=== PATIENT | male | born 1970 | race African-American/Black ===

== ENCOUNTER → 2017-10-30 | Outpatient (CLI) | payer OTHER ==
[~2017-10-30] MED LIST: ASPIR 8181 MG PO; BACTRIM DS TAB1 EACH PO; COREG25 MG PO; DIABETA 2.5MG2.5 MG; KEFLEX500 M1 PO; LABETALOL 100100 MG; LANTUS100 UNIT/M SUBQ; LIPITOR10 MG; LIPITOR10 MG PO; LISINOPRIL10 MG; MAGNESIUM27 MG; MEPILEX1 EACH TP; MYFORTIC180 MG; NORVASC5 MG PO; PREDNISOLONE 5 M5 M1; PREDNISONE 5 MG5 M1 PO; PROGRAF1 MG PO; RENVELA0.8 GM; SENSIPAR60 MG PO; TRADJENTA5 MG; TRAMADOL 50 MG50 MG PO
== END ==
LOC: HYPER 06:48
DX: E11.621 Type 2 diabetes mellitus with foot ulcer (principal); L97.511 Non-pressure chronic ulcer of other part of right foot limited to breakdown of skin; I10 Essential (primary) hypertension; L84 Corns and callosities; Z79.4 Long term (current) use of insulin; Z94.0 Kidney transplant status

== ENCOUNTER → 2017-11-21 | Outpatient (CLI) | payer OTHER | LOC: HYPER 11-13 06:37 | DX: E11.621 Type 2 diabetes mellitus with foot ulcer (principal); L97.511 Non-pressure chronic ulcer of other part of right foot limited to breakdown of skin; E11.42 Type 2 diabetes mellitus with diabetic polyneuropathy; Z79.4 Long term (current) use of insulin; Z94.0 Kidney transplant status; I10 Essential (primary) hypertension ==

== ENCOUNTER 2019-08-02 22:48 | Emergency (ER) | payer BC, OTHER ==
[~2019-08-02] VITALS: Ht 175.3 cm; Wt 103.4 kg
[2019-08-03] MEDS ORDERED: DOXYCYCLINE 10100 MG PO (00:05)
[2019-08-03] MEDS ORDERED: CIPROFLOXACIN500 M1 PO (00:05)
[2019-08-03 00:29] VITALS: BP 156/86
== END 2019-08-03 00:30 | disposition home or self-care (01) ==
LOC: ER 22:48
DX: L03.115 Cellulitis of right lower limb (principal); I10 Essential (primary) hypertension; E11.9 Type 2 diabetes mellitus without complications; Z79.4 Long term (current) use of insulin

== ENCOUNTER 2019-08-03 15:37 | Inpatient (IN) | payer BC, OTHER ==
[~2019-08-03] VITALS: Ht 172.7 cm; Wt 105.8 kg
[~2019-08-03 15:37] MED LIST changes: +CIPROFLOXACIN500 M1 PO; +DOXYCYCLINE 10100 MG PO
[2019-08-03 17:36] LABS: HEMATOCRIT 37.2 % (42.0-52.0); HEMOGLOBIN 12.2 gm/dL (14.0-18.0); MCH 30.3 pg (26.0-34.0); MCHC 32.8 g/dL (28.0-37.0); MCV 92.4 fL (80.0-100.0); RBC 4.03 mil/uL (4.50-6.00); RDW 14.2 % (10.5-14.5); WBC 15.6 thou/uL (4.0-11.0)
[2019-08-03 17:41] LABS: CALCIUM 10.2 mg/dL (8.5-10.1); POTASSIUM 3.9 mmol/L (3.5-5.1)
[2019-08-03 17:47] LABS: ALBUMIN 2.8 g/dL (3.4-5.0); PHOSPHORUS 2.7 mg/dL (2.5-4.9); TOTAL BILIRUBIN 0.8 mg/dL (<0.1-1.0); TOTAL PROTEIN 7.6 g/dL (6.4-8.2)
[2019-08-03 18:01] LABS: INR 1.1; PROTIME 11.3 Seconds (9.3-11.4)
[2019-08-03 19:55] VITALS: BP 137/74
--- NOTE | 2019-08-03 20:42 | NUR ---
Direct admission to the floor due to R foot abcess. A+Ox4. Transferred to room safely. Admission care and assessment done. On room air. To start an IV line- night filler nurse informed. Wound dressing, cleaning and photo done. Consults called in by pharmacy. Medication reconcilation done and for r/v- a/w which medications to be resumed- night filler nurse informed. Sepsis screen done. A/W urine specimen for urinalysis. On isolation, ?MRSA- asked Dr Winslow and informed her no wound swab has been done yet- swab done by Dr Winslow and sent to lab. Blood draw done by lab staff. Pt with admission order of [facility]- as per Dr Winslow, a/w lab results and to decide if pt will need to be moved. For MRI of foot tomorrow- checklist done, to be faxed tomorrow- shift supervisor rn nurse informed. Pt complained of R shoulder pain due to lifting and abdominal hernia- Dr Winslow informed and assessed the patient. Vital signs stable. Up ad georgi. A/w OT, PT, CM evaluation and wound nurse consult. With fistula on L upper arm- not on dialysis anymore, pt had kidney transplant 2014. Systems Architecture Analyst consult placed due to wound and for pt's food preference. To continue monitoring.
[2019-08-03 21:44] LABS: URINE BLOOD NEGATIVE (Negative); URINE CLARITY CLEAR; URINE COLOR YELLOW; URINE GLUCOSE-RANDOM* 1+ (Negative); URINE KETONES 1+ (Negative); URINE LEUKOCYTES-REFLEX NEGATIVE (Negative); URINE NITRITE-REFLEX NEGATIVE (Negative); URINE PROTEIN (DIPSTICK) 1+ (Negative); URINE SPECIFIC GRAVITY >= 1.030 (1.005-1.035)
[2019-08-03 21:45] LABS: ICTOTEST (BILI CONFIRMATORY) Negative (Negative); URINE BILIRUBIN NEGATIVE (Negative)
[2019-08-03 22:01] LABS: BACTERIA-REFLEX 1-9 Few /HPF (None Seen); SQUAMOUS 0-3 Few /LPF (0-3); URINE RBC 0-2 Rare /HPF (0-2); URINE WBC-REFLEX 0-5 Rare /HPF (0-5)
[2019-08-03 22:02] LABS: COARSE GRANULAR CASTS 0-3 Few /LPF (None Seen); CRYSTALS None Seen /LPF (None Seen); HYALINE CASTS 0-3 Few /LPF (None Seen); MUCUS 4-6 Moderate strn/LPF (None Seen)
[2019-08-03 23:57] VITALS: BP 118/72
--- NOTE | 2019-08-04 01:45 | NUR ---
PATIENT AOX4 MAKES NEEDS KNOWN. PATIENT CONTINENT OF BOTH BOWEL AND BLADDER.PATIENT IS UP AT ANTHONY. PATIENT HAS A WOUND ON RIGHT FOOT MINIMUM DRAINING NO ODOR, PATIENT WOUND HAS S/S OF INFECTION, WARM TO TOUCH, PATIENT IS ON ABT. NEW IV ON RIGHT HAND. PATIENT DENIED PAIN OR DISCOMFORT THIS SHIFT. URINE SPECIMENT AND WOUND CULTURE SENT TO THE LAB. PATIENT IN BED ASLEEP AT THIS TIME BREATHING REGULAR AND UNLABOURED.
[2019-08-04 04:31] VITALS: BP 132/83
[2019-08-04 06:19] LABS: HEMATOCRIT 34.1 % (42.0-52.0); HEMOGLOBIN 10.9 gm/dL (14.0-18.0); MCV 93.7 fL (80.0-100.0); RBC 3.65 mil/uL (4.50-6.00); RDW 14.3 % (10.5-14.5); WBC 12.3 thou/uL (4.0-11.0)
[2019-08-04 06:28] LABS: CALCIUM 9.4 mg/dL (8.5-10.1); CREATININE 1.9 mg/dL (0.7-1.3); POTASSIUM 3.9 mmol/L (3.5-5.1)
[2019-08-04 07:40] VITALS: BP 152/88
--- NOTE | 2019-08-04 12:05 | NUR ---
SCREEN PERFORMED THIS DATE FOR OT EVAL. ASSESSED PATIENT WALKING BACK FROM TOILET SAFELY, PATIENT UP AD ANTHONY IN ROOM PER NURSING. PATIENT ABLE TO DOFF/DON L SLIPPER SOCK, WOUND CARE DRESSING ON R FOOT. PATIENT HAS WFL UE AROM AND STRENGTH FOR FUNCTIONAL TASKS. TALKED ABOUT POTENTIAL FOR SHOWER CHAIR AT HOME TO BATHE SEATED FOR INCREASED SAFETY. PATIENT LIVES WITH SONS. NO OT CONCERNS SEEN AT THIS DATE.
--- NOTE | 2019-08-04 13:13 | NUR ---
Assess due to RD consult received for pt with diabetic foot wound-wound care following. Has good appetite, eating high protein foods and uses extra whey protein at home. Hx renal transplant 2014. On carb controlled diet, BG 179-334. Pt voices trying to watch what he eats, but does not routinely check sugars at home, States last A1C around 8% which is down from prior testing. BG likely aggravated with prednisone. Pt voiced no dietary questions but would like to have a protein drink while here-order glucerna shakes 1x per day. Low nutrition risk
[2019-08-04 14:26] VITALS: BP 136/74
--- NOTE | 2019-08-04 14:43 | NUR ---
PT ADMITTED RELATED TO RT FOOT WOUND. CM REVIEWED CHART AND SPOKE WITH CARE TEAM. CM MET WITH PT AT BEDSIDE THIS DAY. PT IS A&O X4. CM ROLE INTRODUCED. PT INDICATED HE LIVES IN A HOUSE WITH HIS TWO SONS WITH 1 STEP TO ENTER AND 1 STEP INSIDE. 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 PT INDICATED NO DME AND THAT HE HAD HH AFTER HIS KIDNEY TRANSPLANT YRS AGO. PT INDICATED HE PLANS TO RETURN HOME ONCE MEDICALLY STABLE. CM TO FOLLOW INDICATED WITH DC PLANNING.
--- NOTE | 2019-08-04 15:38 | NUR ---
ASSUMED CARE 0700. PAIN MANAGABLE. DRESSING CHANGED BY WOUND CARE. NO PICTURE REQUIRED PER WOUND NURSE. UP AB ANTHONY WILL CALL FOR ASSISTANCE. BED BATH GIVEN. SURGERY TOMORROW WITH DR ONEAL TO CLEAN OUT WOUND. NPO AFTER MIDNIGHT TONIGHT. CALL LIGHT IN REACH. CONTINUE TO MONITOR.
[2019-08-04 20:08] VITALS: BP 137/81
--- NOTE | 2019-08-05 06:08 | NUR ---
Pt. rested quietly at intervals during the night when checked on during frequent rounds. He offers no c/o pain. Dressing to his right foot is dry and intact.
[2019-08-05 06:14] LABS: ALBUMIN 1.8 g/dL (3.4-5.0); CALCIUM 7.8 mg/dL (8.5-10.1); CREATININE 1.4 mg/dL (0.7-1.3); PHOSPHORUS 2.4 mg/dL (2.5-4.9); POTASSIUM 3.8 mmol/L (3.5-5.1)
[2019-08-05 08:40] VITALS: BP 151/87
--- NOTE | 2019-08-05 14:26 | NUR ---
CARE TEAM INDICATED PT IS TO HAVE I&D RIGHT FOOT TODAY. CM TO FOLLOW INDICATED WITH DC PLANNING.
[2019-08-05 15:09] VITALS: BP 147/81
--- NOTE | 2019-08-05 17:06 | NUR ---
ASSUMED CARE 0700. SURGERY TODAY LEFT UNIT 1530. NOTIFIED DOCTOR NICHELLE OF ELEVATED BLOOD SUGARS WITH NPO STATUS. DRESSING REMAINED C//D/I.
[2019-08-05 18:40] VITALS: BP 171/89
[2019-08-05] MEDS ORDERED: ZESTRIL10 MG PO (19:14)
[2019-08-05] MEDS ORDERED: LISINOPRIL10 MG PO (19:14)
[2019-08-06 01:29] VITALS: BP 117/81
--- NOTE | 2019-08-06 03:15 | NUR ---
ASSUMED CARE AROUND 190. ISO FOR MRSA WOUND. AXOX4. AMLODIPINE FROM HOME MEDS RESUMED. R FOOT DRESSING DCI. NO S/S ACUTE DISTRESS NOTED OR REPORTED AT THIS TIME. WILL CONT TO MONITOR FOR ANY CHANGES IN CONDITION.
[2019-08-06 05:00] VITALS: BP 130/76
[2019-08-06 06:45] LABS: ALBUMIN 2.3 g/dL (3.4-5.0); CREATININE 1.6 mg/dL (0.7-1.3); PHOSPHORUS 2.7 mg/dL (2.5-4.9); POTASSIUM 4.8 mmol/L (3.5-5.1)
[2019-08-06 08:21] VITALS: BP 155/88
[2019-08-06 09:20] LABS: HEMATOCRIT 32.9 % (42.0-52.0); HEMOGLOBIN 10.5 gm/dL (14.0-18.0); MCH 30.3 pg (26.0-34.0); MCHC 31.8 g/dL (28.0-37.0); MCV 95.1 fL (80.0-100.0); PLATELET COUNT 269 thou/uL (150-400); RBC 3.46 mil/uL (4.50-6.00); RDW 14.8 % (10.5-14.5); WBC 7.9 thou/uL (4.0-11.0)
[2019-08-06 09:50] LABS: ABSOLUTE NEUTROPHILS 5.8 thou/uL (1.4-8.2)
[2019-08-06 09:51] LABS: ANISOCYTOSIS SLIGHT
--- NOTE | 2019-08-06 11:45 | NUR ---
WOUND CARE F/U; ROUNDING WITH DR COLE AND EFRAIN BSN. THE RIGHT FOOT IS S/P SUGICAL DEBRIDEMENT WITH INTACT SUTURES PRESENT. THERE IS A DORSAL FOOT WOUND AND A PLANTAR FOOT WOUND. RECOMMENDATIONS; PACK DORSUM AND PLANTAR FOOT WOUNDS WITH AQUACEL AG, COVER WITH ABD, SECURE WITH KERLIX AND PHOENIX WRAP, DAILY/PRN DISCUSSED WITH STAFF
--- NOTE | 2019-08-06 14:23 | NUR ---
CARE TEAM INDICATED THAT IT IS ANTICPATED THAT PT WILL BE HERE OVER THE WEEKEND. WE ARE AWAITING CULTURES. CM TO CONTINUE TO FOLLOW INDICATED WITH DC PLANNING.
[2019-08-06 14:35] VITALS: BP 146/77
[2019-08-06 19:05] VITALS: BP 116/65
--- NOTE | 2019-08-06 19:41 | NUR ---
Assumed pt care this am, vs have been stable no sings of distres or verbalizations have been noted. Wound care done by wound care nurse and seen by Dr. Louise. Left UA fistula present with bruit and thil. Wound dressing c/d/i. No pain was noted, blood sugar checks and insulin given as per emar. Diet and medication are tolerated. POC followed.
[2019-08-07 06:00] LABS: ALBUMIN 2.2 g/dL (3.4-5.0); CALCIUM 9.2 mg/dL (8.5-10.1); CREATININE 1.6 mg/dL (0.7-1.3); PHOSPHORUS 2.5 mg/dL (2.5-4.9); POTASSIUM 4.2 mmol/L (3.5-5.1)
--- NOTE | 2019-08-07 07:38 | NUR ---
ASSUMED CARE AROUND 1900. AXOX4. R FOOT DRESSING CDI. NO S/S ACUTE DISTRESS NOTED OR REPORTED AT THIS TIME. CARE TRANSFERRED DAY RN AT THIS TIME.
[2019-08-07 08:00] VITALS: BP 154/82
[2019-08-07 15:00] VITALS: BP 149/81
[2019-08-07 15:07] VITALS: BP 154/82
--- NOTE | 2019-08-07 19:20 | NUR ---
Assumed pt care this am, VS have been stable and no signs or verbalizations of distress have been noted. Foot dressing is c/d/i. POC followed, medication given as per emar, blood sugars monitored. Diet and medications well tolerated. Pt is progressing well towards goals.
[2019-08-07 20:28] VITALS: BP 135/71
--- NOTE | 2019-08-08 03:46 | NUR ---
ASSUMED CARE AROUDM 1900. AXOX4. RIGHT FOOT DRESSING CHANGED. TOLERATED WELL. NO S/S ACUTE DISTRESS NOTED OR REPORTED AT THIS TIME. WILL CONT TO MONITOR FOR ANY CHANGES IN CONDITION.
[2019-08-08 07:25] VITALS: BP 136/70
[2019-08-08 10:48] LABS: ABSOLUTE NEUTROPHILS 6.9 thou/uL (1.4-8.2); BASOPHILS 0.8 % (0.0-2.0); EOSINOPHILS 1.6 % (0.0-3.0); HEMATOCRIT 34.1 % (42.0-52.0); LYMPHOCYTES 8.8 % (24.0-44.0); MCH 30.2 pg (26.0-34.0); MCHC 32.1 g/dL (28.0-37.0); MONOCYTES 5.1 % (1.0-8.0); PLATELET COUNT 295 thou/uL (150-400); POLYS 83.7 % (36.0-66.0); RBC 3.63 mil/uL (4.50-6.00); RDW 14.8 % (10.5-14.5); WBC 8.3 thou/uL (4.0-11.0)
[2019-08-08 10:58] LABS: CALCIUM 9.8 mg/dL (8.5-10.1); CREATININE 1.7 mg/dL (0.7-1.3); POTASSIUM 4.8 mmol/L (3.5-5.1)
[2019-08-08 14:39] VITALS: BP 120/66
--- NOTE | 2019-08-08 19:58 | NUR ---
PT A&OX4, VSS, DENIES PAIN. ANTIBIOTICS RAN ORDERED. DR. ZARAGOZA IN TO CHANGE DRESSING ON RIGHT FOOT. PATIENT UP 1 ASSIST WITH WALKER TO BEDROOM, PLACING WEIGHT ON HEEL OF RIGHT FOOT. WILL CONTINUE TO MONITOR.
[2019-08-08 21:01] VITALS: BP 160/81
--- NOTE | 2019-08-09 02:52 | NUR ---
PATIENT AOX4 MAKES NEEDS KNOWN. PATIENT RIGHT FOOT DRESSING IS C/D/I. LEFT DIALYSIS FISTULAR HAS A THRILL AND BRUIT. PATIENT AMBULATES TO THE BATHROOM WITH STEADY GAITS. PATIENT DENIED PAIN OR DISCOMFORT.PATIENT IN BED ASLEEP AT THIS TIME BREATHING REGULAR AND UNLABOURED.
[2019-08-09 07:30] VITALS: BP 144/80
--- NOTE | 2019-08-09 15:10 | NUR ---
WOUND CARE F/U; ROUNDING TODAY WITH DR DOLORES LAUGHLIN. THE WOUNDS ARE STABLE, DRAINAGE HAS DECREASED AND THERE IS NO ORDER OR COMLAINTS FROM THE PATIENT. NO ACUTE S/S OF INFECTION AT THIS TIME. RECOMMENDATION; CONTINUE POC DISCUSSED WITH JOSE
[2019-08-09 16:24] VITALS: BP 118/60
[2019-08-09 20:37] VITALS: BP 147/89
--- NOTE | 2019-08-09 21:18 | NUR ---
PT A"&OX4, VSS, DENIES PAIN. WOUND CARE COMPLETED BY DOCTOR. ANTIBIOTICS RAN ORDERED. NO SIGNS OF DISTRESS, AFEBRILE. CAM BOOT ORDERED PER DOCTOR MILA. VERIFIED AND CONFIRMED WITH NURSE AT OFFICE. DRESSING TO RIGHT FOOT REMAINS C/D/I. WILL CONTINUE TO MONITOR.
--- NOTE | 2019-08-09 23:06 | PATH ---
[facility] [address] [place] [address] PATHOLOGY RPT PROCEDURE Name: MED SNYDER Howie Room #: 454-P [facility] IN M.R.#: [id number] Admission: 08/03/19 Date of : 74 Discharge: Report #: [id number] Path Case #: [id number] LCA Accession Number: [id number] . 01 Material submitted: . foot - RIGHT FOOT BONE. Modifiers: right . 01 Clinical history: . Right foot septci arthritis . 02 Diagnosis: "Right foot bone", biopsy/debridement: - Decalcified bone and articular cartilage with marked reactive changes including edema and fresh hemorrhage. - Periosteum and scant synovium with reactive changes and localized acute and chronic inflammation/necrosis. - See comment. (RONNA:gentry; 08/09/2019) MBR 08/09/2019 1435 Local . 02 Comment: Localized acute and chronic inflammation and necrosis is noted. No definitive acute osteomyelitis is identified. Clinical and radiographic correlation is recommended. (CLW:gentry; 08/09/2019) . 02 Electronically signed: . Shirley Cerrato MD, Pathologist NPI- [id number] . 01 Gross description: . The specimen is received in formalin, labeled "Med Snyder, right foot bone". Received are multiple segments of light frost to frost-brown bone measuring 1.5 x 1.1 x 0.3 cm in aggregate dimensions. The specimen is filtered and entirely submitted in cassette A1, following light decalcification. (CAA; 08/06/2019) QAC/QAC 08/06/2019 1037 Local . 02 Pathologist provided ICD-10: M86.171, M86.671, M87.9 . 02 CPT . 630179, 917739 Specimen Comment: A courtesy copy of this report has been sent to Specimen Comment: [phone], , . Specimen Comment: Report sent to ,DR JERONIMO / [place] [address] PATHOLOGY RPT PROCEDURE Name: MED SNYDER Room #: 454-P [facility] IN M.R.#: [id number] Admission: 08/03/19 Date of : 74 Discharge: Report #: [id number] Path Case #: [id number] Performed at: [address], [place], [place] [id number] MD Drake Reyes MD Phone: [phone] Performed at: [address] [id number] MD Yumi Romano MD Phone: [phone]
--- NOTE | 2019-08-10 04:43 | NUR ---
Assumed pt care at 1900. Pt is A/OX4,VSS. Denies pain on assessment. Voiding w/o difficultiers. Up with heel touch weight bearing assist of to BR.Dressing on right foot C/D/I. Fall precautions in place.
[2019-08-10 05:38] LABS: ALBUMIN 2.2 g/dL (3.4-5.0); CALCIUM 9.5 mg/dL (8.5-10.1); CREATININE 1.5 mg/dL (0.7-1.3); PHOSPHORUS 3.3 mg/dL (2.5-4.9); POTASSIUM 4.4 mmol/L (3.5-5.1)
[2019-08-10 05:43] LABS: ABSOLUTE NEUTROPHILS 5.3 thou/uL (1.4-8.2); BASOPHILS 0.6 % (0.0-2.0); EOSINOPHILS 2.1 % (0.0-3.0); HEMATOCRIT 32.8 % (42.0-52.0); HEMOGLOBIN 10.6 gm/dL (14.0-18.0); LYMPHOCYTES 14.6 % (24.0-44.0); MCH 30.5 pg (26.0-34.0); MCHC 32.4 g/dL (28.0-37.0); MCV 94.2 fL (80.0-100.0); MONOCYTES 10.9 % (1.0-8.0); PLATELET COUNT 310 thou/uL (150-400); POLYS 71.8 % (36.0-66.0); RBC 3.48 mil/uL (4.50-6.00); RDW 14.9 % (10.5-14.5); WBC 7.4 thou/uL (4.0-11.0)
[2019-08-10 08:00] VITALS: BP 146/83
--- NOTE | 2019-08-10 11:15 | HC ---
[facility] [place] [address] CONSULTATION Name: SADIA SNYDERRODOLFO Denise Room #: 454-P [facility] IN .R.#: [id number] Admission: 08/03/19 Attend Phys: Edgardo Coughlin MD Discharge: Date of : 74 Report #: [id number] THIS REPORT FOR: //name// CC: Juan Alberto Louise [facility] physician/PCP Hailey Coughlin DATE OF SERVICE: 08/09/2019 INFECTIOUS DISEASE CONSULTATION REASON FOR CONSULTATION: I was asked to evaluate concerning diabetic foot infection in the setting of renal transplantation. HISTORY OF PRESENT ILLNESS: The patient is a 49 year old with underlying diabetes, peripheral vascular disease, peripheral neuropathy, end-stage renal disease, status post renal transplant, on 3-drug immunosuppression. Noticed an ulceration over the dorsum of his right foot about 10 days ago. This worsened with increased pain. No specific trauma. He has also noted to have a callus over the lateral aspect of his foot. No fever, chills or sweats. His blood glucose control has been poor. He states that when he checks his levels have been in the 100 range. His hemoglobin A1c was reported at 9. He presented to the Emergency Room on 08/02/2019 prior to his planned visit with Podiatry. He had noticed purulent drainage. He was placed on ciprofloxacin and doxycycline. Subsequent day, he was hospitalized, placed on vancomycin and Zosyn. No cultures were obtained during the visit in the Emergency Room. Subsequent cultures were obtained on the day of his admission, which are currently pending. He then went to surgery on 08/05/2019 for debridement of the soft tissues fifth MTP joint and bone biopsy. Those cultures remain pending. I have not seen the pathology report from his bone biopsy yet. He has remained on vancomycin and Zosyn without significant side effect. He has had previous wound to the right foot. He states about 4 years ago. Renal transplant in 2014. He was maintained on Myfortic and Prograf. I see he is also on prednisone. He has had no rejection episodes. He is a nonsmoker. REVIEW OF SYSTEMS: Full 10-point review was negative other than what is described above. ALLERGIES: None known. MEDICATIONS: As noted on his MAR including prednisone, tacrolimus, and mycophenolate. Also, on vancomycin and Zosyn. PAST MEDICAL AND SURGICAL HISTORY: Diabetes, peripheral neuropathy, peripheral [facility] [address] [place] [address] CONSULTATION Name: KELLEN SNYDER Room #: 454-P [facility] IN .R.#: [id number] Admission: 08/03/19 Attend Phys: Edgardo Coughlin MD Discharge: Date of : 74 Report #: [id number] vascular disease, hypertension, renal transplant, left upper extremity AV fistula and left knee surgery. FAMILY HISTORY: Noncontributory. SOCIAL HISTORY: Nonsmoker, no significant alcohol intake. Tries to exercise regularly. PHYSICAL EXAMINATION: VITAL SIGNS: Afebrile and hemodynamically stable. GENERAL: He is alert and cooperative and pleasant, in no acute distress. SKIN: Without rash or decubitus other than what is noted to his right foot. EYES: Without scleral icterus. MOUTH: Without mucositis. NECK: Supple. LUNGS: Clear. HEART: Regular, without murmur, gallop or rub. ABDOMEN: Soft and nontender with no hepatosplenomegaly or mass. Graft was nontender. Moderately obese. GENITORECTAL: Not performed. EXTREMITIES: Pulses in the right lower extremity were palpable. An incision over the lateral aspect of his distal foot over the metatarsal head. He had a wound over the dorsum of his foot, which was packed with a lateral distal foot wound packed as well. Mild induration. Moderate erythema. Trace edema. Cranial nerves intact. Sensation in his toes was diminished to touch. Capillary refill was mildly diminished. He had evidence of tinea pedis. PSYCHIATRIC: Mood normal. LABORATORY AND DIAGNOSTIC STUDIES: Sodium 135, potassium 4.8, bicarbonate 28, creatinine 1.7. Liver function test normal. Hemoglobin 11, platelet count 295,000, white count 8.3 with 83% segs and 18% lymphs. Sedimentation rate 90. Urinalysis unremarkable. Tacrolimus level is pending. Gram stain of his tissue culture showing mixed arcadio. Cultures are pending. Lower extremity ultrasound shows evidence of peripheral vascular disease, mostly on the left. MRI scan showed fifth MTP septic arthritis changes with soft tissue inflammatory change. No gross evidence of osteomyelitis. X-rays of the foot done postoperatively show evidence of biopsy fifth metatarsal head and proximal phalanx. IMPRESSION: A 49-year-old diabetic with end-stage renal disease, now renal transplant, on 3-drug immunosuppression with associated peripheral neuropathy and diabetic foot infection. He is postoperative day #4 from surgical debridement of the fifth metatarsophalangeal joint and soft tissues. 1. Peripheral vascular disease. 2. Hypertension. 3. Peripheral neuropathy. 4. Chronic kidney disease. [facility] [address] [facility] [place] [address] CONSULTATION Name: KELLEN SNYDER Room #: 201-P [facility] IN Deepa#: [id number] Admission: 08/03/19 Attend Phys: Edgardo Coughlin MD Discharge: Date of : 74 Report #: [id number] 5. Tinea pedis. RECOMMENDATIONS: 1. We will await cultures of the operative tissues. Await bone biopsy path report to evaluate for osteomyelitis. 2. Continue IV antibiotic combination with vancomycin and Zosyn. 3. We will need central venous access. 4. Would decrease his immunosuppression as much as possible. 5. Control blood glucose levels. 6. May well need further surgical debridement depending on initial results. <ELECTRONICALLY SIGNED> By: aZire Nguyen MD 08/10/19 1115 1149 [id number] Zaire Nguyen MD /nt
[2019-08-10] MEDS ORDERED: TYLENOL325 MG PO (12:03)
[2019-08-10] MEDS ORDERED: MYFORTIC180 MG PO (12:03)
[2019-08-10] MEDS ORDERED: PROTONIX40 M1 PO (12:03)
[2019-08-10] MEDS ORDERED: TERBINAFINE HCL30 GM TOP (12:03)
--- NOTE | 2019-08-10 12:40 | NUR ---
dp sent referral to [facility], for wound care and iv antibiotics, discharging today.
[2019-08-10] MEDS ORDERED: VANC750 IV ×2 (13:22→16:11)
[2019-08-10 15:25] VITALS: BP 146/83
[2019-08-10 15:44] VITALS: BP 146/83
[2019-08-10 15:46] VITALS: BP 146/83
--- NOTE | 2019-08-10 15:47 | NUR ---
CARE TEAM INDICATED THAT PT IS MEDICALLY STABLE TO DC HOME THIS DAY WITH HOME INFUSION SERVICES THROUGH [employer] AND HOME [facility] THROUGH [employer]. REFERRAL HAD BEEN SENT TO [facility] PER PT REQUEST BUT THEY INDICATED THAT THEY WOULDN'T BE ABLE TO SEE PT UNTIL FRIDAY. MORENITA CAME AND DID BEDSIDE TEACH WITH PT. TICC PLACED. PT IS TO HAVE DOSE AT 9PM. ORDERS FAXED TO AND HOME [facility]. PT IS AWARE AND AGREEABLE WITH DC HOME THIS DAY. NO OTHER CM INTERVENTION INDICATED CASE CLOSED.
[2019-08-10 16:20] VITALS: BP 146/83
--- NOTE | 2019-08-10 17:17 | NUR ---
PROGRESSED TOWARDS GOALS, DC HOME TODAY WITH HH. EDUCATION PROVIDED IV INFUSION EDUCATION TO PATIENT. TICC LINE PLACE BY IR TODAY DOUBLE LUMIN. LINE EXTENSION PLACED FOR HOME INFUSIONS. PT INFORMED SUPPLIES TO BE DELIVED TO HIS HOME FOR 9PM [facility] INFUSION. WOUND DRESSING CHANGED BY DR ZARAGOZA. PT DECLINED REDESSING WOUND FOR PICTURE.
--- NOTE | 2019-08-10 17:56 | HC ---
[facility] [place] [address] CONSULTATION Name: KELLEN SNYDER Howie Room #: 454-P [facility] IN ..#: [id number] Admission: 08/03/19 Attend Phys: Edgardo Coughlin MD Discharge: Date of : 74 Report #: [id number] THIS REPORT FOR: //name// CC: Juan Alberto Louise [facility] physician/PCP Hailey Coughlin DATE OF SERVICE: 08/04/2019 CHIEF COMPLAINT: Right foot abscess. HISTORY OF PRESENT ILLNESS: This is a 49-year-old male patient who twisted his ankle and sustained some type of abrasion to the lateral aspect of his right foot. He later developed some pain, drainage, swelling and was seen in the Emergency Department and was referred to Dr. Juan Alberto Louise. After being seen by Dr. Louise in the office, Dr. Louise performed a bedside incision and drainage and made him a direct admission to the hospital. I was asked to participate in care regarding ongoing wound care. The patient denies significant pain in his foot. He does have a history of diabetes and peripheral neuropathy, hyperlipidemia, hypertension and a history of renal failure requiring dialysis, but he is now status post right renal transplant 5 years ago and doing well, not requiring any dialysis at this time. PAST MEDICAL HISTORY: As detailed above, hypertension, diabetes, hyperlipidemia, previous pneumonia, peripheral neuropathy and the current ulceration of the foot. ALLERGIES: None. MEDICATIONS: Include ciprofloxacin and doxycycline, Prograf, aspirin, Lantus, prednisone, Norvasc, Lipitor, Ultram, Tradjenta. SOCIAL HISTORY: Negative for any history of smoking and only occasional alcohol use on special occasions. FAMILY HISTORY: Noncontributory. He has a twin brother that does not suffer from diabetes or renal failure. REVIEW OF SYSTEMS: CONSTITUTIONAL: The patient denies fever, chills, or weight loss. NEUROLOGICAL: The patient denies focal weakness but does have significant neuropathy in his feet. ENT: The patient denies earache, nasal drainage, sore throat. CARDIOVASCULAR: The patient denies chest pain or palpitations or diaphoresis. PULMONARY: The patient denies cough or shortness of breath. [address] [address] CONSULTATION Name: KELLEN SNYDER Room #: 454-P [facility] IN ..#: [id number] Admission: 08/03/19 Attend Phys: Edgardo Coughlin MD Discharge: Date of : 74 Report #: [id number] GASTROINTESTINAL: The patient denies nausea, vomiting, diarrhea or abdominal pain. ORTHOPEDIC: The patient is aware of the ulceration involving his right foot. He has a little bit of pain associated with this. Other systems in a 14-point review of systems are negative. PHYSICAL EXAMINATION: VITAL SIGNS: At this time include temperature 98.6, pulse 88, respiratory rate 16, blood pressure 132/83. GENERAL: This is a well-developed, well-nourished male patient who appears to be in minimal distress. HEENT: Head is normocephalic. Nose and throat clear. NECK: Supple. ABDOMEN: Soft, on bowel sounds present. EXTREMITIES: Examination of the lower extremities demonstrates easily palpable distal pulses. He has an area of some tenderness, redness and a little bit of fluctuance involving the lateral foot near the fifth MTP. There is ulceration both on the dorsal and the plantar surface. There is still some purulent drainage that can be expressed from this area. I have taken a culture from this. LABORATORY DATA: Sodium 134, potassium 3.9, chloride 100, CO2 of 23, BUN 27, creatinine 1.9, glucose 183. White blood cell count 12.3 with hemoglobin of 10.9, hematocrit of 34.1. MRI demonstrates no evidence of osteomyelitis. There is evidence of septic arthritis of the right fifth MTP. RECOMMENDATIONS: At this point in time, culture and sensitivity has been obtained. I have recommended broad-spectrum antibiotics, pending the results of culture and sensitivity, he may require more surgical debridement. Dr. Louise is following him here in the hospital and would defer that judgment to Dr. Louise. We would recommend ongoing nutritional support to support maximal wound healing as well as to help maintain good glycemic control. Would recommend continuation of current medications. Would recommend minimal weightbearing or heel touch weightbearing at present. I appreciate being asked to see him in consultation. <ELECTRONICALLY SIGNED> By: Clayton Bustillos MD 08/10/19 1756 [id number] [id number] Clayton Bustillos MD /nt
--- NOTE | 2019-08-11 09:17 | HC ---
[facility] [place] [address] CONSULTATION Name: KELLEN SNYDER Howie Room #: 454-P [facility] IN ..#: [id number] Admission: 08/03/19 Attend Phys: Edgardo Coughlin MD Discharge: 08/10/19 Date of : 74 Report #: [id number] THIS REPORT FOR: //name// CC: Juan Alberto RAMEY physician/PCP Hailey Coughlin DATE OF SERVICE: 08/04/2019 REASON FOR CONSULTATION: Renal transplant. REASON FOR PRESENTATION: Right foot wound. HISTORY OF PRESENT ILLNESS: A 49-year-old with known diabetes mellitus and hypertension. He tells me that back in 2014, he had a kidney transplant, cadaveric. This was related to a complication of pneumonia illness. Before that, he used to be on dialysis for about 4 years. He does not really know his baseline creatinine. He is maintained on Myfortic and Prograf. He was directly admitted from the [facility]iatry [facility] for intravenous antibiotics for his right foot diabetic cellulitis. It looks like that this is being investigated appropriately with some x-rays that showed some soft tissue swelling and gas. He was subsequently admitted to be evaluated and was found to have a creatinine value of 2.0. He really does not know what his baseline creatinine is. He was initiated on appropriate antibiotic. I am being consulted to manage his kidney transplant issues. PAST MEDICAL HISTORY: 1. Diabetes mellitus. 2. Hypertension. 3. Status post kidney transplantation. 4. Left upper extremity AV fistula. 5. Left knee surgery. MEDICATIONS: 1. Tacrolimus 4 mg twice a day. 2. Prednisone. 3. Myfortic 180 twice a day. 4. Amlodipine. FAMILY HISTORY: Both parents are . SOCIAL HISTORY: He denies drug or alcohol abuse. He is still working. REVIEW OF SYSTEMS: GENERAL: No fever or chills. [facility] [address] [place] [address] CONSULTATION Name: KELLEN SNYDER Howie Room #: 454-P [facility]#: [id number] Admission: 08/03/19 Attend Phys: Edgardo Coughlin MD Discharge: 08/10/19 Date of : 74 Report #: [id number] CARDIOVASCULAR: No chest pain or palpitation. PULMONARY: No cough or hemoptysis. GASTROINTESTINAL: No nausea or vomiting. GENITOURINARY: No frequency, no urgency. MUSCULOSKELETAL: As per the history of present illness. ALLERGIES: None. PHYSICAL EXAMINATION: GENERAL: The patient is alert, oriented, in no apparent distress. VITAL SIGNS: Blood pressure from this morning was 132/83. HEAD AND NECK: No jugular venous distention. CHEST: No crackles. CARDIOVASCULAR: No rub. ABDOMEN: Soft, nontender. LOWER EXTREMITIES: No edema. Dressing applied over the right foot. UPPER EXTREMITIES: Left AV fistula. LABORATORY DATA: Reviewed. White blood cell count 12.3. Sodium 134, BUN is 27, creatinine is 1.9. UA with +1 protein and ketones. IMPRESSION AND PLAN: 1. Status post kidney transplantation. 2. Right foot cellulitis, potential abscess. 3. Chronic kidney disease. 4. Diabetes mellitus. 5. Hypertension. 6. We will resume the patient on transplant medication. 7. Continue IV fluid. 8. Try to retrieve his medical records from [facility] to figure out his baseline creatinine. 9. Wound care. 10. Antibiotics per primary team. <ELECTRONICALLY SIGNED> By: Sary Fox MD 08/11/19 0917 [id number] [id number] Sary Fox MD /nt
== END 2019-08-10 19:01 | disposition home health service (06) | DRG 477 ==
LOC: 4W 15:37
PROVIDERS: Hospitalist; Nurse Practitioner; Podiatrist Foot & Ankle Surgery; ADMIT Internal Medicine
DX: M00.071 Staphylococcal arthritis, right ankle and foot (principal); E43 Unspecified severe protein-calorie malnutrition; L03.115 Cellulitis of right lower limb; Z94.0 Kidney transplant status; L02.611 Cutaneous abscess of right foot; N17.9 Acute kidney failure, unspecified; E11.22 Type 2 diabetes mellitus with diabetic chronic kidney disease; I12.9 Hypertensive chronic kidney disease with stage 1 through stage 4 chronic kidney disease, or unspecified chronic kidney disease; E11.51 Type 2 diabetes mellitus with diabetic peripheral angiopathy without gangrene; I70.202 Unspecified atherosclerosis of native arteries of extremities, left leg; B35.3 Tinea pedis; K43.2 Incisional hernia without obstruction or gangrene; N18.3 Chronic kidney disease, stage 3 (moderate); E11.621 Type 2 diabetes mellitus with foot ulcer; B95.62 Methicillin resistant Staphylococcus aureus infection as the cause of diseases classified elsewhere; L97.519 Non-pressure chronic ulcer of other part of right foot with unspecified severity; E11.42 Type 2 diabetes mellitus with diabetic polyneuropathy; M25.511 Pain in right shoulder; E78.5 Hyperlipidemia, unspecified; Z87.01 Personal history of pneumonia (recurrent); Z68.35 Body mass index [BMI] 35.0-35.9, adult; Z79.4 Long term (current) use of insulin; Z79.82 Long term (current) use of aspirin; Z79.899 Other long term (current) drug therapy
CPT/HCPCS: 10047; 50010; 50101; 50386; 53078; 56527; 57091; 57103; 62110; 62850; 70005

== ENCOUNTER → 2019-08-26 | Outpatient (CLI) | payer BC, OTHER ==
[~2019-08-26] MED LIST changes: +LISINOPRIL10 MG PO; +MYFORTIC180 MG PO; +PROTONIX40 M1 PO; +TERBINAFINE HCL30 GM TOP; +TYLENOL325 MG PO; +VANC750 IV; +ZESTRIL10 MG PO
== END ==
LOC: HYPER 10:30
DX: E11.621 Type 2 diabetes mellitus with foot ulcer (principal); L97.512 Non-pressure chronic ulcer of other part of right foot with fat layer exposed; E11.42 Type 2 diabetes mellitus with diabetic polyneuropathy; I10 Essential (primary) hypertension; Z79.82 Long term (current) use of aspirin; Z79.4 Long term (current) use of insulin; Z94.0 Kidney transplant status

== ENCOUNTER → 2019-09-27 | Outpatient (CLI) | payer BC, OTHER | LOC: SPEC 09-21 14:29 → HYPER 16:53 | DX: E11.621 Type 2 diabetes mellitus with foot ulcer (principal); L97.513 Non-pressure chronic ulcer of other part of right foot with necrosis of muscle; E11.42 Type 2 diabetes mellitus with diabetic polyneuropathy; I10 Essential (primary) hypertension; Z79.4 Long term (current) use of insulin; Z94.0 Kidney transplant status ==

== ENCOUNTER → 2019-09-28 | Outpatient (CLI) | payer BC, OTHER | END | disposition home or self-care (01) | LOC: CATH 09:05 | DX: Z45.2 Encounter for adjustment and management of vascular access device (principal); I12.9 Hypertensive chronic kidney disease with stage 1 through stage 4 chronic kidney disease, or unspecified chronic kidney disease; E11.22 Type 2 diabetes mellitus with diabetic chronic kidney disease; N18.3 Chronic kidney disease, stage 3 (moderate); Z94.0 Kidney transplant status; E78.5 Hyperlipidemia, unspecified; Z98.890 Other specified postprocedural states; Z79.899 Other long term (current) drug therapy ==

== ENCOUNTER 2019-11-05 10:35 | Inpatient (IN) | payer BC, OTHER ==
[~2019-11-05] VITALS: Ht 172.7 cm; Wt 101.6 kg
[~2019-11-05 10:35] MED LIST changes: +DOXYCYCLINE HY100 M3 PO; +HUMALOG KW100 UNIT/1 SUBQ
[2019-11-05 11:38] LABS: CALCIUM 10.4 mg/dL (8.5-10.1); CREATININE 1.3 mg/dL (0.7-1.3); POTASSIUM 4.5 mmol/L (3.5-5.1)
[2019-11-05 11:44] LABS: ALBUMIN 3.5 g/dL (3.4-5.0); TOTAL BILIRUBIN 0.8 mg/dL (<0.1-1.0); TOTAL PROTEIN 7.4 g/dL (6.4-8.2)
[2019-11-05 11:51] VITALS: BP 159/85
--- NOTE | 2019-11-05 13:52 | EKG ---
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: WAYNE : 1970 Requested By: Juan Alberto Louise Order Number: [id number] MD: Shan Moore Measurements Intervals [place] Rate: 92 P: 37 MO: 145 QRS: -41 QRSD: 102 T: 55 QT: 355 QTc: 440 Interpretive Statements Sinus rhythm Left axis deviation Abnormal R-wave progression, late transition No previous ECG available for comparison Electronically Signed On 11-05-2019 13:52:06 GEAR MACHINIST by Shan Moore [email or web address] <ELECTRONICALLY SIGNED> By: Shan Moore MD, [facility] 11/05/19 1352 1118 17 Shan Moore MD, FACC /EPI
--- NOTE | 2019-11-05 16:35 | NUR ---
PT CARE ASSUMED AT 1533. A&Ox4. PT REPORT TAKEN FROM COURTNEY IN POST OP. PT POST SURGICAL VITALS STABLE. PT HAS NO COMPLAINTS OF PAIN. PT HAS HAD CLEAR LIQUIDS WITH NO NAUSEA OR VOMITTING. DIET CAN BE ADVANCED. BED IN LOW POSITION, LOCKED, CALL LIGHT IN REACH. WOUND DRESSING HAS NO DRAINAGE. ICE PACK IN PLACE. SCD IN PLACE. IV IS PATENT, WITH NO REDNESS OR SWELLING.
--- NOTE | 2019-11-05 16:47 | NUR ---
INITIAL ASSESSMENT: Pt evaluated for d/c planning needs. Reviewed chart and spoke with nurse and pt. Pt is alert and oriented. Pt was hospitalized at [facility] in August 2019 and returned home with [facility] and [facility] home infusion. Spoke with [facility] and they d/c pt from service on 11/04. Pt had surgery today. Pt said his IVAB had stopped a few weeks ago. Pt lives in house with SO and children. Pt was independent with ADL's. Pt states he has crutches at home. Pt plans on returning home on d/c from hospital. Will remain available to assist as needed.
[2019-11-05 20:44] VITALS: BP 134/73
--- NOTE | 2019-11-06 02:34 | NUR ---
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
[2019-11-06 04:18] LABS: HEMATOCRIT 37.6 % (42.0-52.0); HEMOGLOBIN 11.9 gm/dL (14.0-18.0); MCHC 31.6 g/dL (28.0-37.0); MCV 91.8 fL (80.0-100.0); RBC 4.1 mil/uL (4.50-6.00); RDW 15.2 % (10.5-14.5); WBC 4.7 thou/uL (4.0-11.0)
[2019-11-06 06:36] LABS: CREATININE 1.4 mg/dL (0.7-1.3); MAGNESIUM 1.5 mg/dL (1.8-2.4); POTASSIUM 4.2 mmol/L (3.5-5.1)
[2019-11-06 07:58] VITALS: BP 144/84
--- NOTE | 2019-11-06 10:53 | NUR ---
Assumed care of pt at 0700. Dressing on right foot c/d/i. Pain controlled with prn pain meds. Non-weight bearing on right lower extremity. Possible d/c tomorrow. Pt will need a walker issued. Fall precautions in place. Will continue to monitor.
[2019-11-06 17:18] VITALS: BP 107/50
[2019-11-06 19:29] VITALS: BP 121/70
[2019-11-07 02:05] LABS: GLYCOHEMOGLOBIN (HGB A1C) 10.9 % (4.8-5.6)
[2019-11-07 03:53] VITALS: BP 129/70
--- NOTE | 2019-11-07 04:14 | NUR ---
ASSESSMENT COMPLETED. DRSG TO R FOOT C/D/I. EXPOSED TOES WITH GOOD CSM.PT DENIES PAIN REQUIRING PAIN MEDS SO FAR. HE HAS BEEN USING URINAL. VSS. PLAN TO D/C HOME AFTER ALL NEEDS ARE SET UP.
--- NOTE | 2019-11-07 04:54 | HC ---
[facility] [place] [address] [address] CONSULTATION Name: KELLEN SNYDER Howie Room #: 438-P [facility] IN ..#: [id number] Admission: 11/05/19 Attend Phys: Yefri Rodriguez MD Discharge: Date of : 74 Report #: [id number] THIS REPORT FOR: //name// CC: FAM physician/PCP Yefri Rodriguez DATE OF SERVICE: 11/06/2019 INFECTIOUS DISEASE CONSULTATION ATTENDING PHYSICIAN: Dr. Rodriguez. REASON FOR EVALUATION: Osteomyelitis involving the fifth ray. HISTORY OF PRESENT ILLNESS: Chart reviewed, patient examined. This is a 49-year-old man with known diabetes mellitus complicated by peripheral vascular disease, denies neuropathy and end-stage renal disease, post-renal transplant. He is on immunosuppressive therapy regimen. He was actually seen by our service back in August. Culture at that time had oxacillin-resistant Staphylococcus aureus, treated with vancomycin, being followed as an outpatient by Podiatry. Apparently recent imaging raised question of osteomyelitis. He believes he had a culture done, although that is not available to me. Due to concern about a lack of healing of this ulcer over the lateral aspect, underwent partial fifth ray amputation. He is seen postop day 1. He has been started on vancomycin without apparent adverse drug effect. He is lucid at this point. Denies any significant pulmonary or gastrointestinal related complaints. He has had no recent fevers. Appetite has generally been good. Weight has been stable. ALLERGIES: None known. CURRENT MEDICATIONS: Include hydrocodone, insulin, atorvastatin, and vancomycin. PAST MEDICAL HISTORY: As noted above noted diabetes mellitus type 2, insulin requiring, complicated by vasculopathy, end-stage renal disease, now he is post-renal transplantation, hypertension, hyperlipidemia. ADDITIONAL MEDICINES: Include tacrolimus, prednisone, mycophenolate. SOCIAL HISTORY: Nonsmoker, occasional ethanol, no illicit drug use. FAMILY HISTORY: Noncontributory. REVIEW OF SYSTEMS: As above, otherwise unremarkable. PHYSICAL EXAMINATION: [facility] [address] [place] [address] CONSULTATION Name: KELLEN SNYDER Room #: 438-P [facility] IN [facility]#: [id number] Admission: 11/05/19 Attend Phys: Yefri Rodriguez MD Discharge: Date of : 74 Report #: [id number] GENERAL: He is alert, cooperative, appropriate, appears somewhat chronically ill. He is lucid. VITAL SIGNS: Temperature 98.5, pulse 91, respirations 18, blood pressure 134/73. SKIN: Warm, dry, no rashes. HEENT: Normocephalic. Extraocular muscles intact. NECK: Supple. LUNGS: Generally clear to auscultation. HEART: Regular, has occasional ectopy, soft systolic murmur. ABDOMEN: Soft, mildly obese, nontender, no peritoneal signs. GENITOURINARY AND RECTAL: Deferred. EXTREMITIES: Distal right lower extremity has a surgical dressing in place. LABORATORY DATA: Initial electrolytes, sodium 134, potassium 4.5, chloride 101, bicarbonate is 23, anion gap of 10, BUN and creatinine 28 and 1.3, glucose of 236, calcium elevated at 10.4, albumin of 3.5, total protein 74. Estimated GFR 72. Culture in progress showed rare wbc's, no organisms on Gram stain. CBC: White count of 4.7, H and H 11.9 and 37.6, platelets of 165. ASSESSMENT: Osteomyelitis involving the fifth digit proximal metatarsal, not seen those studies, underwent partial ray amputation. We will continue empiric therapy with vancomycin. Does have history of methicillin-resistant Staphylococcus aureus as recently as 08/2019. At this point, he is not overtly toxic. We will continue to monitor expectantly. I would imagine he will need an extended period of antibiotics, likely arrange a central venous access early into the next week. <ELECTRONICALLY SIGNED> By: Polo Rebolledo MD 11/07/19 0454 0701 0753 Polo Rebolledo MD /nt
[2019-11-07 08:25] VITALS: BP 143/80
--- NOTE | 2019-11-07 13:21 | NUR ---
ASSUMED CARE OF THE PT AT 0700. PTS PAIN IS BEING CONTROLLED BY PAIN MEDICATION, SEE EMAR. PT HAS POST OP DRESSING STILL INTACT, AND WANTS PHYSICIAN TO CHANGE IT. PT REFUSED SPIROMETRY BEREATHING AND RT NOTIFIED. R FOREARM IV DRY AND INTACT. LUNGS ARE CLEAR. ADVISED PT COULD NOT WALK THE UNIT DUE TO BEING ON ISOLATION, PT UNDERSTOOD. CALL LIGHT IN PLACE, BED IN LOWEST POSITION AND CALL LIGHT IS WITHIN REACH. WILL CONTINUE TO MONITOR THE PT.
[2019-11-07 17:28] VITALS: BP 117/75
[2019-11-07 19:20] VITALS: BP 151/89
--- NOTE | 2019-11-07 23:10 | NUR ---
1909 BEDSIDE REPORT WITH LORE AND ASSUMED CARE OF PT 2029 ASSESSMENT COMPLETED. CLIENT WITH SURGICAL DRSG IN PLACE C/D/I DRSG NOT CHANGED PER REPORT OF SURGEON WILL CHANGE FIRST TIME. CLIENT AWAITING TO SEE IF NEED FOR PICC LINE FOR DISCHARGE ABX. TOES TO AMPUTATION FOOT WARM AND DRY WITH CAP REFILL<2 SEC, NO EDEMA NOTED TO RLE. CLIENT STATES ORAL PAIN MEDICATION AND ELEVATION ARE HELPING WITH PAIN. DENIES ANXIETY. INSULIN GIVEN PER JAN FOR HYPERGLYCEMIA. WILL CONTINUE TO MONITOR
[2019-11-08 03:25] VITALS: BP 130/78
[2019-11-08 07:58] VITALS: BP 149/98
--- NOTE | 2019-11-08 09:55 | NUR ---
PT CARE ASSUMED AT 0700. A&Ox4. PT SLEEPING IN ROOM. PT CLEARED BY PT. [facility]S WITH COVERAGE. PT POSSIBLE DISCHARGE AFTER CLEARNACE FROM DR. FULLER. NEED CLARIFICATION IF PT WILL DISCHARGE WITH ORAL ANTIBIOTICS OR WITH PICC LINE AND IV ANTIBIOTICS. WILL FOLLOW UP WITH DR. FULLER. PT IV PATENT WITH NO REDNESS OR SWELLING. PT UP AT [facility] WITH ARNALDO
[2019-11-08 12:41] VITALS: BP 149/98
--- NOTE | 2019-11-08 13:05 | NUR ---
FAXED CLINICAL UPDATE TO [facility] SPOKE WITH MERRY IN INTAKE SHE RECEIVED UPDATE AND WILL RESUME CARE AT [facility]. FAXED CLINICAL UPDATE TO [facility] SPOKE WITH DIVINA AND SHE RECEIVED UPDATE AND WILL BE ABLE TO ACCEPT AT [facility].
--- NOTE | 2019-11-08 14:50 | NUR ---
Following for d/c planning needs. Spoke with Dr Nguyen and received order for home IVAB. Start of care on Friday morning. Pt will received evening dose of IVAB prior to d/c. Spoke with [facility] and [facility]. Asked planner/scheduler to fax orders to both.
[2019-11-08 14:56] VITALS: BP 149/98
[2019-11-08 17:00] VITALS: BP 145/92
[2019-11-08 17:08] VITALS: BP 149/98
--- NOTE | 2019-11-08 17:29 | NUR ---
PT DISCHARGING TOOAY TO HOME WITH [facility] HH UPDATE AND DC ORDERS/SUMMARY RECEIVED CONFIRMATION AND SPOKE WITH ALFREDO IN INTAKE THEY WILL NOTIFY PT TIME OF VISITS. FAXED DC ORDERS/SUMMARY TO [facility]. RECEIVED CONFIRMATION AND THEY WILL NOTIFY PT TIME OF VISITS.
[2019-11-08] MEDS ORDERED: LISINOPRIL5 MG PO (17:52)
--- NOTE | 2019-11-09 14:07 | PATH ---
[facility] [address] [place] [address] PATHOLOGY RPT PROCEDURE Name: MED SNYDER Room #: 438-P [facility] IN M.R.#: [id number] Admission: 11/05/19 Date of : 74 Discharge: 11/08/19 Report #: [id number] Path Case #: [id number] [facility] Accession Number: [id number] . 01 Material submitted: . PART A: toe - RIGHT FIFTH RAY. Modifiers: right, fifth PART B: toe - RIGHT FIFTH METATARSAL CLEAN MARGIN. Modifiers: right, fifth . 01 Clinical history: . Badillo grade 3 diabetic foot ulcer right fifth metatarsal and proximal phalanx; osteomyelitis; non-pressure ulcer to the level of bone right foot . 02 Diagnosis: A. Bone "right fifth ray", amputation: - Deep penetrating ulceration with necrotic acute inflammatory exudate. The ulcer extends into the underlying bone with acute osteomyelitis. - The inked margins appear viable and not inflamed. . B. Bone, "right fifth metatarsal clean margin": - Bone surrounded by fibrous tissue with no evidence of acute osteomyelitis. . (MILLIE:gentry; 11/09/2019) ASHER 11/09/2019 1052 Local . 02 Electronically signed: . Diogenes Okeefe MD, Pathologist NPI- [id number] . 01 Gross description: . A. The specimen is received in formalin, labeled "Med Snyder, right fifth ray". Received is a segment of bone displaying one jagged margin and one blunt, transected margin measuring 3.1 x 2.0 x 1.5 cm in greatest dimensions. The transected margin is inked black. A full thickness cross-section is submitted in cassettes A1 and A2, from transected to jagged aspects, following decalcification. . Possible received within the specimen container are multiple segments of pale frost to dusky lr-frost skin, the largest of which has the attached nail, measuring 7.5 x 3.5 x 1.8 cm in aggregate dimensions. Two lesions are identified displaying a pale frost to light frost appearance measuring 1.1 x 1.1 and 1.2 x 1.0 cm. It Consulting Director sections through each lesion are submitted in cassette A3. . B. The specimen is received in formalin, labeled "Med Snyder, right fifth metatarsal clean margin". Received is a segment of yellow-frost bone measuring 1.4 x 0.5 x 0.2 cm in greatest dimensions[place] [address] PATHOLOGY RPT PROCEDURE Name: MED SNYDER Room #: 438-P DIS IN M.R.#: [id number] Admission: 11/05/19 Date of : 74 Discharge: 11/08/19 Report #: [id number] Path Case #: [id number] submitted entirely in cassette B1, following light decalcification. (CAA; 11/08/2019) QAC/QAC 11/08/2019 0931 Local . 02 Pathologist provided ICD-10: M86.171 . 02 CPT . 530323, 884951, [id number], 420385 Specimen Comment: A courtesy copy of this report has been sent to [phone], [phone] Specimen Comment: [phone] Specimen Comment: Report sent to / DR RODRIGUEZ Performed at: 01 [facility] [address] [id number] MD Drake Reyes MD Phone: [phone] Performed at: 02 [facility] [address] [id number] MD Jimmy Marie MD Phone: [phone]
== END 2019-11-08 20:15 | disposition home health service (06) | DRG 617 ==
LOC: 4S 10:35 → TBA 10:35 → 4S 15:33
PROVIDERS: Internal Medicine; Podiatrist Foot & Ankle Surgery; ADMIT Hospitalist
DX: E11.69 Type 2 diabetes mellitus with other specified complication (principal); M00.9 Pyogenic arthritis, unspecified; M86.8X7 Other osteomyelitis, ankle and foot; L03.115 Cellulitis of right lower limb; E78.5 Hyperlipidemia, unspecified; N17.9 Acute kidney failure, unspecified; N18.9 Chronic kidney disease, unspecified; E11.42 Type 2 diabetes mellitus with diabetic polyneuropathy; I12.9 Hypertensive chronic kidney disease with stage 1 through stage 4 chronic kidney disease, or unspecified chronic kidney disease; E11.621 Type 2 diabetes mellitus with foot ulcer; E11.22 Type 2 diabetes mellitus with diabetic chronic kidney disease; B95.62 Methicillin resistant Staphylococcus aureus infection as the cause of diseases classified elsewhere; B95.2 Enterococcus as the cause of diseases classified elsewhere; Z79.4 Long term (current) use of insulin; Z86.14 Personal history of Methicillin resistant Staphylococcus aureus infection; Z91.14 Patient's other noncompliance with medication regimen; Z79.899 Other long term (current) drug therapy
CPT/HCPCS: 10102; 50010; 50386; 50951; 56526; 56527; 57091; 57119; 57120; 57178; 57192

== ENCOUNTER → 2019-11-25 | Outpatient (CLI) | payer BC, OTHER ==
[~2019-11-25] MED LIST changes: +LISINOPRIL5 MG PO
== END ==
LOC: HYPER 09:59
DX: E11.621 Type 2 diabetes mellitus with foot ulcer (principal); L97.515 Non-pressure chronic ulcer of other part of right foot with muscle involvement without evidence of necrosis; E11.42 Type 2 diabetes mellitus with diabetic polyneuropathy; I10 Essential (primary) hypertension; Z79.4 Long term (current) use of insulin; Z94.0 Kidney transplant status

== ENCOUNTER → 2019-12-09 | Outpatient (CLI) | payer BC, OTHER | LOC: HYPER 09:39 | DX: E11.621 Type 2 diabetes mellitus with foot ulcer (principal); L97.513 Non-pressure chronic ulcer of other part of right foot with necrosis of muscle; E11.42 Type 2 diabetes mellitus with diabetic polyneuropathy; I10 Essential (primary) hypertension; Z79.4 Long term (current) use of insulin; Z94.0 Kidney transplant status ==

== ENCOUNTER → 2019-12-23 | Outpatient (CLI) | payer BC, OTHER | LOC: HYPER 09:48 | DX: E11.621 Type 2 diabetes mellitus with foot ulcer (principal); L97.515 Non-pressure chronic ulcer of other part of right foot with muscle involvement without evidence of necrosis; E11.42 Type 2 diabetes mellitus with diabetic polyneuropathy; I10 Essential (primary) hypertension; Z94.0 Kidney transplant status; Z79.4 Long term (current) use of insulin ==

== ENCOUNTER → 2019-12-30 | Outpatient (CLI) | payer BC, OTHER | LOC: CATH 10:39 | DX: M86.8X7 Other osteomyelitis, ankle and foot (principal) ==

== ENCOUNTER 2020-06-02 12:49 | Emergency (ER) | payer BC, OTHER ==
[~2020-06-02] VITALS: Ht 172.7 cm; Wt 97.5 kg
[2020-06-02 13:19] VITALS: BP 126/67
== END 2020-06-02 17:30 | disposition home or self-care (01) ==
LOC: ER 12:49
DX: L72.3 Sebaceous cyst (principal); L02.412 Cutaneous abscess of left axilla; I10 Essential (primary) hypertension; E11.9 Type 2 diabetes mellitus without complications; E78.5 Hyperlipidemia, unspecified; Z79.899 Other long term (current) drug therapy; Z79.82 Long term (current) use of aspirin; Z79.4 Long term (current) use of insulin; Z98.890 Other specified postprocedural states; Z86.14 Personal history of Methicillin resistant Staphylococcus aureus infection

== ENCOUNTER 2020-06-10 14:23 | Emergency (ER) | payer BC, OTHER ==
[~2020-06-10] VITALS: Ht 172.7 cm; Wt 98.4 kg
[2020-06-10 15:27] LABS: ABSOLUTE NEUTROPHILS 6.8 thou/uL (1.4-8.2); BASOPHILS 0.5 % (0.0-2.0); LYMPHOCYTES 6.8 % (24.0-44.0); MCH 32.1 pg (26.0-34.0); MCHC 33.3 g/dL (28.0-37.0); MCV 96.3 fL (80.0-100.0); MONOCYTES 9.1 % (1.0-8.0); PLATELET COUNT 181 thou/uL (150-400); POLYS 83.6 % (36.0-66.0); RBC 3.74 mil/uL (4.50-6.00); RDW 13.3 % (10.5-14.5); WBC 8.1 thou/uL (4.0-11.0)
[2020-06-10 15:37] LABS: CALCIUM 9.4 mg/dL (8.5-10.1); CREATININE 1.6 mg/dL (0.7-1.3); POTASSIUM 5.1 mmol/L (3.5-5.1)
[2020-06-10 15:44] LABS: TOTAL BILIRUBIN 0.5 mg/dL (0.2-1.0); TOTAL PROTEIN 7.3 g/dL (6.4-8.2)
[2020-06-10] MEDS ORDERED: NORCO 5-325 TA1 EAC2 PO (16:44)
[2020-06-10] MEDS ORDERED: CLEOCIN HCL150 MG PO (16:44)
[2020-06-10 17:02] VITALS: BP 115/65
== END 2020-06-10 17:46 | disposition home or self-care (01) ==
LOC: ER 14:23
PROVIDERS: Physician Assistant
DX: U07.1 COVID-19 (principal); L72.3 Sebaceous cyst; R05 Cough; R50.9 Fever, unspecified; L02.412 Cutaneous abscess of left axilla; I10 Essential (primary) hypertension; E11.9 Type 2 diabetes mellitus without complications; E78.5 Hyperlipidemia, unspecified; Z79.899 Other long term (current) drug therapy

== ENCOUNTER 2020-06-13 13:29 | Emergency (ER) | payer BC, OTHER ==
[~2020-06-13] VITALS: Ht 172.7 cm; Wt 95.7 kg
[~2020-06-13 13:29] MED LIST changes: +CLEOCIN HCL150 MG PO; +NORCO 5-325 TA1 EAC2 PO
[2020-06-13 15:15] VITALS: BP 112/61
== END 2020-06-13 15:15 | disposition home or self-care (01) ==
LOC: ER 13:29
DX: L02.412 Cutaneous abscess of left axilla (principal); I10 Essential (primary) hypertension; E11.9 Type 2 diabetes mellitus without complications; E78.5 Hyperlipidemia, unspecified; Z79.4 Long term (current) use of insulin; Z79.2 Long term (current) use of antibiotics; Z79.899 Other long term (current) drug therapy

== ENCOUNTER 2020-06-18 14:32 | Emergency (ER) | payer BC, OTHER ==
[~2020-06-18] VITALS: Ht 172.7 cm; Wt 90.3 kg
[2020-06-18 14:33] VITALS: BP 100/61
== END 2020-06-18 17:08 | disposition home or self-care (01) ==
LOC: ER 14:32
DX: L02.412 Cutaneous abscess of left axilla (principal); U07.1 COVID-19; I10 Essential (primary) hypertension; E78.5 Hyperlipidemia, unspecified; E11.9 Type 2 diabetes mellitus without complications; Z86.14 Personal history of Methicillin resistant Staphylococcus aureus infection; Z94.0 Kidney transplant status; Z79.899 Other long term (current) drug therapy; Z79.2 Long term (current) use of antibiotics; Z79.4 Long term (current) use of insulin

== ENCOUNTER → 2020-06-29 | Outpatient (CLI) | payer BC, OTHER | LOC: HYPER 11:06 | PROVIDERS: ATTEND Emergency Medicine | DX: T81.89XA Other complications of procedures, not elsewhere classified, initial encounter (principal); E11.622 Type 2 diabetes mellitus with other skin ulcer; L98.492 Non-pressure chronic ulcer of skin of other sites with fat layer exposed; I10 Essential (primary) hypertension; Z94.0 Kidney transplant status; Z79.4 Long term (current) use of insulin; Y92.238 Other place in hospital as the place of occurrence of the external cause; Y83.8 Other surgical procedures as the cause of abnormal reaction of the patient, or of later complication, without mention of misadventure at the time of the procedure ==